=== PATIENT | female | born 1970 | race Caucasian/White ===

== ENCOUNTER 2020-03-01 01:09 | Outpatient (CLI) | payer OTHER, SELFPAY ==
[2020-03-01 19:58] LABS: SARS-CoV-2 RNA PCR Negative
== END 2020-03-01 01:10 | disposition home or self-care (01) ==
LOC: ANHCOVIDDT 01:10
PROVIDERS: PCP Nurse Practitioner Family; Visit Provider Internal Medicine Gastroenterology
DX: Z01.812 Encounter for preprocedural laboratory examination (principal); Z20.828 Contact with and (suspected) exposure to other viral communicable diseases
CPT/HCPCS: 87635; C9803; U0003

== ENCOUNTER 2020-03-03 02:49 | Day surgery (SDC) | payer OTHER, SELFPAY ==
[2020-02-09 15:50] VITALS: BMI 30.2
[2020-03-03 10:20] VITALS: BP 114/62; PULSE 76; RESP 16; TEMP 37.4; O2SAT 99; BMI 31.1
[2020-03-03] MEDS: LACTATED RINGERS 1,000 ML 150 ML IV CONT (10:29)
--- NOTE | 2020-03-03 11:12 | PM.HPGS ---
History of Present Illness History of Present Illness Consent: Risks, benefits, and alternatives have been discussed and questions answered. Patient agrees to proceed with procedure. Chief complaint: Neoplasm Screening Narrative: Kyung Karimi is a 50 year old female here for first screening colonoscopy Review of Systems Constitutional: Constitutional: Denies headache(s) and Denies weakness Eyes: Eyes: Denies blurry vision ENT: Reports Normal hearing present, Denies headache(s) and Denies neck pain Cardiovascular: Cardiovascular: Denies chest pain and Denies dyspnea Respiratory: Respiratory: Denies dyspnea Gastrointestinal: Gastrointestinal: Reports no additional gastrointestinal complaints Genitourinary: Genitourinary: Denies dysuria Musculoskeletal: Musculoskeletal: Denies neck pain Integumentary/Breasts: Skin/Breast: Denies dry skin Neurologic: Reports Normal hearing present, Denies headache(s) and Denies weakness Psychiatric: Psychiatric: Denies anxiety Endocrine: Endocrine: Denies change in body appearance Hematologic/Lymphatic: Hematologic/Lymphatic: Denies easy bleeding Allergic/Immunologic: Allergic/Immunologic: Denies urticaria PMFSH Past Medical History Medical History (Updated 01/12/20 @ 08:22 by Alesia Rod NP) Allergic rhinitis, cause unspecified (02/20/11) Mgrn wo aura wo ntrc mgr (02/20/11) Ovarian cyst Surgical History Surgical History (Updated 01/12/20 @ 07:59 by Nasima Chilel MA) H/O left breast biopsy H/O: section History of dilation and curettage Social History Social History (Updated 01/12/20 @ 08:00 by Nasima Chilel MA) Years smoked: 10 Smoking status: Former smoker Alcohol intake: current Drinks per week: 0 Alcohol use details: MAY HAVE 2 BEERS EVERY 2 MONTHS Substance use: never Substance use type: does not use Living arrangements: with family Additional living arrangements comments: , has 3 children Gender identity (if verbalized by the patient): Female Spiritual care concerns: No Meds Home Medications and Allergies Home Medications Medication Instructions Recorded Confirmed Type zolmitriptan 5 mg tablet See Rx Instructions PO .COMPLEX #3 08/19/19 03/03/20 Rx tablet peg 3350-electrolytes 236 240 ml PO Q10M #4000 ml 01/14/20 Rx gram-22.74 gram-6.74 gram-5.86 gram solution fluticasone propionate 50 1 spray INTRANASAL DAILY PRN #16 gm 01/29/20 02/09/20 Rx mcg/actuation nasal spray,suspension loratadine-pseudoephedrine 1 tablet PO DAILY 02/09/20 03/03/20 History [Claritin-D 24 Hour] xaheoposzksb-nrx-qpyb-FA-vit K 1 tablet PO DAILY 02/09/20 02/09/20 History [Adults Multivitamin] Allergies Allergy/AdvReac Type Severity Reaction Status Date / Time No Known Allergies Allergy Verified 03/03/20 10:20 Vital Signs Vital Signs - 24 hr 03/03/20 10:20 Temperature 99.4 F Pulse Rate 76 Respiratory Rate 16 Blood Pressure 114/62 Pulse Oximetry 99 Exam Const: General: comfortable and no acute distress HENMT: General nose exam: Normal nares present Eyes: General: appearance normal, both eyes and all related structures Neck: Neck: no JVD Resp: Auscultation: clear to auscultation bilaterally Cardio: Rate: regular rate Rhythm: regular rhythm GI: Inspection: non-distended GI Palp: Yes Soft to palpation Skin: General skin exam: normal color Neuro: General: gait normal Speech: normal speech Extrem: General: normal to inspection Psych: Mental Status: mental status grossly normal Assessment and Plan Assessment and plan (1) Screening for malignant neoplasm of colon: Code(s): Z12.11 - Encounter for screening for malignant neoplasm of colon Status: Acute Assessment and Plan: will proceed with colonoscopy
[2020-03-03 11:35] VITALS: BP 87/51; PULSE 72; RESP 21; O2SAT 98
[2020-03-03 11:45] VITALS: BP 101/65; PULSE 67; RESP 23; O2SAT 100
[2020-03-03 11:55] VITALS: BP 108/62; PULSE 77; RESP 19; O2SAT 100
== END 2020-03-03 12:10 | disposition home or self-care (01) ==
PROVIDERS: PCP Nurse Practitioner Family; Visit Provider Internal Medicine Gastroenterology
PROC: 0DJD8ZZ Inspection of Lower Intestinal Tract, Via Natural or Artificial Opening Endoscopic (ICD-10-PCS; CPT 45378; principal; 2020-03-03 12:15)
DX: Z12.11 Encounter for screening for malignant neoplasm of colon (principal); K57.30 Diverticulosis of large intestine without perforation or abscess without bleeding; K64.8 Other hemorrhoids; Z87.891 Personal history of nicotine dependence
CPT/HCPCS: 45378; J2704; J7120

== ENCOUNTER 2023-05-31 07:14 | Outpatient (CLI) | payer OTHER, SELFPAY ==
--- NOTE | ~2023-05-31 | US_ITS ---
Limited Abdominal Sonogram: Real-time sonographic imaging of the right upper quadrant was performed. Clinical History: Right upper quadrant pain Findings: The liver appears normal with no evidence of mass lesion or bile duct dilatation. Main por ameena vein demonstrates normal direction of flow. The gallbladder is well distended, and appears normal with no evidence of gallstone or wall thickening. The common bile duct measures 4 mm. The visualize d pancreas, aorta, and IVC are unremarkable. Impression: No significant abnormality seen. Reviewed, dictated and finalized at location M. [facility] Impression: No significant abnormality seen.
== END 2023-05-31 07:15 | disposition home or self-care (01) ==
LOC: CHSIMG 07:15
PROVIDERS: PCP Nurse Practitioner Family; Visit Provider Nurse Practitioner Family
DX: R19.8 Other specified symptoms and signs involving the digestive system and abdomen (principal); R10.11 Right upper quadrant pain
CPT/HCPCS: 76705

== ENCOUNTER 2023-06-05 11:06 | Outpatient (CLI) | payer OTHER, SELFPAY ==
[2023-06-05 11:16] LABS: Appearance Urine Clear (Clear); Bilirubin Urine Negative (Negative); Blood Urine Negative (Negative); Color Urine Light Yellow (Yellow); Glucose Urine UA Negative (Negative); Ketones Urine Negative (Negative); Leukocyte Esterase Ur Negative (Negative); Nitrate Urine Negative (Negative); Protein Urine Negative (Negative); Urobilinogen Urine 0.2 mg/dL (0.2-1.0); pH Urine 7.5 (5.0-8.0)
[2023-06-05 11:19] LABS: Add Urine Microscopic? NO
== END 2023-06-05 11:07 | disposition home or self-care (01) ==
LOC: CHSLAB 11:07
PROVIDERS: PCP Nurse Practitioner Family; Visit Provider Nurse Practitioner Family
DX: R10.11 Right upper quadrant pain (principal)
CPT/HCPCS: 81003; 87077; 87086; 87088

== ENCOUNTER 2023-06-26 08:29 | Outpatient (CLI) | payer OTHER, SELFPAY ==
[2023-06-26 08:45] LABS: Appearance Urine Clear (Clear); Bilirubin Urine Negative (Negative); Blood Urine Negative (Negative); Color Urine Yellow (Yellow); Glucose Urine UA Negative (Negative); Ketones Urine Negative (Negative); Leukocyte Esterase Ur Negative (Negative); Nitrate Urine Negative (Negative); Protein Urine Negative (Negative); Specific Grav Ur 1.015 (1.010-1.020); Urobilinogen Urine 0.2 mg/dL (0.2-1.0)
[2023-06-26 09:09] LABS: Add Urine Microscopic? NO
== END 2023-06-26 08:30 | disposition home or self-care (01) ==
LOC: CHSLAB 08:30
PROVIDERS: PCP Nurse Practitioner Family; Visit Provider Nurse Practitioner Family
DX: R82.71 Bacteriuria (principal)
CPT/HCPCS: 81003; 87086